=== PATIENT | male | born 1955 | race Caucasian/White ===

== ENCOUNTER 2018-11-04 22:12 | Emergency (ER) | payer BC, OTHER ==
--- NOTE | 2018-11-04 22:37 | EDM.PDOC ---
ED HPI GENERAL MEDICAL PROBLEM - General Chief Complaint: General Stated Complaint: LEG CRAMPS Time Seen by Provider: 11/04/18 22:15 Source of Information: Reports: Patient History Limitations: Reports: No Limitations - History of Present Illness INITIAL COMMENTS - FREE TEXT/NARRATIVE: This is a 63-year-old male. Today he was at a golfing tournament. States he walked 27,000 steps. He noted this evening that he got a cramp in his right thigh which sounds like the adductor muscle. Once that, eased up he got bilateral cramps in his hamstrings. As it turns out he has to bend a lot to do golfing and when you swelling the twisting of the pelvis and the legs affects the adductor muscle on the right leg when you're right-handed. He states he's been not drinking a lot of fluids though he had some Gatorade and some coffee. He denies any other acute symptoms and is never really had some cramps like this before. I believe the cramps are because he is overdone it today and he is a little dry. Right Leg Pain Score (Numeric/FACES): 1 - Related Data Allergies Allergy/AdvReac Type Severity Reaction Status Date / Time No Known Allergies Allergy Verified 11/04/18 22:43 Home Meds: Home Meds . [No Known Home Meds] 11/04/18 [History] Past Medical History - Past Health History Medical/Surgical History: Denies Medical/Surgical History Social & Family History - Tobacco Use Smoking Status *Q: Never Smoker - Recreational Drug Use Recreational Drug Use: No ED ROS GENERAL - Review of Systems Review Of Systems: See Below Constitutional: Denies: Fever, Chills HEENT: Reports: No Symptoms Respiratory: Reports: No Symptoms Cardiovascular: Reports: No Symptoms Endocrine: Reports: No Symptoms GI/Abdominal: Reports: No Symptoms : Reports: No Symptoms Musculoskeletal: Reports: Other (Leg cramps) Skin: Reports: No Symptoms Neurological: Reports: No Symptoms Psychiatric: Reports: No Symptoms Hematologic/Lymphatic: Reports: No Symptoms ED EXAM, GENERAL - Physical Exam Exam: See Below Exam Limited By: No Limitations General Appearance: Alert, WD/WN, No Apparent Distress Eye Exam: Bilateral Eye: Normal Inspection Ears: Normal External Exam Nose: Normal Inspection Throat/Mouth: Normal Inspection, Normal Lips, Normal Voice, No Airway Compromise Head: Normocephalic Neck: Supple Respiratory/Chest: No Respiratory Distress Back Exam: Normal Inspection, Full Range of Motion Extremities: Normal Inspection, Normal Range of Motion, Other (No active cramping presently) Neurological: Alert, Oriented Psychiatric: Normal Affect, Normal Mood Skin Exam: Warm, Dry Course - Vital Signs Last Recorded V/S: Last Vital Signs Temp 97.8 F 11/04/18 22:17 Pulse 80 11/04/18 22:17 Resp 16 11/04/18 22:17 BP 146/88 H 11/04/18 22:17 Pulse Ox 97 11/04/18 22:17 - Orders/Labs/Meds Orders: Active Orders 24 hr Category Date Time Status Sodium Chloride 0.9% [Normal Saline] 1,000 ml Med 11/04/18 22:45 Active IV ASDIRECTED Medication Orders Sodium Chloride (Normal Saline) 1,000 mls @ 1,000 mls/hr IV ASDIRECTED CHANTE Last Admin: 11/04/18 22:48 Dose: 1,000 mls/hr Labs: Laboratory Tests 11/04/18 Range/Units 22:45 Sodium 140 (136-145) mEq/L Potassium 3.7 (3.5-5.1) mEq/L Chloride 108 H (98-107) mEq/L Carbon Dioxide 28 (21-32) mEq/L Anion Gap 7.7 (5-15) BUN 21 H (7-18) mg/dL Creatinine 1.1 (0.7-1.3) mg/dL Est Cr Clr Drug Dosing 79.70 mL/min Estimated GFR (MDRD) > 60 (>60) mL/min BUN/Creatinine Ratio 19.1 H (14-18) Glucose 116 H (80-115) mg/dL Calcium 8.8 (8.5-10.1) mg/dL Magnesium 2.0 (1.8-2.4) mg/dl Total Bilirubin 0.2 (0.2-1.0) mg/dL AST 17 (15-37) U/L ALT 26 (16-63) U/L Alkaline Phosphatase 81 (46-116) U/L Total Protein 6.6 (6.4-8.2) g/dl Albumin 3.3 L (3.4-5.0) g/dl Globulin 3.3 gm/dL Albumin/Globulin Ratio 1.0 (1-2) Meds: Medications Generic Name Dose Route Start Last Admin Trade Name Charley PRN Reason Stop Dose Admin Sodium Chloride 1,000 mls @ 1,000 mls/hr 11/04/18 22:45 11/04/18 22:48 Normal Saline IV 1,000 mls/hr ASDIRECTED CHANTE Administration - Re-Assessments/Exams Free Text/Narrative Re-Assessment/Exam: 11/04/18 23:39 I spoke to the patient regarding his normal sodium potassium calcium and magnesium. Spoke about needing hydration and gentle stretching and that he is overdone the muscles and they're just irritable. Departure - Departure Time of Disposition: 23:40 Disposition: Home, Self-Care 01 Condition: Good Clinical Impression: Muscle fatigue, Mild dehydration, Muscle cramps - Discharge Information *PRESCRIPTION DRUG MONITORING PROGRAM REVIEWED*: Not Applicable *COPY OF PRESCRIPTION DRUG MONITORING REPORT IN PATIENT JAMES: Not Applicable Instructions: Muscle Cramps and Spasms, [id number], Dehydration in Sports- SportsMed Referrals: Cruz Iglesias MD [Primary Care Provider] - Forms: ED Department Discharge Additional Instructions: Continue to hydrate and take Gatorade, if you do get another spasm stretch the muscle to help relieve the spasm, no excessive activity over the next couple days and allow the muscles to rebuild and regenerate so they're not so irritable , follow-up with your family doctor as needed, return to the ER if needed - My Orders Last 24 Hours: My Active Orders 11/04/18 22:45 Sodium Chloride 0.9% [Normal Saline] 1,000 ml IV ASDIRECTED - Assessment/Plan Last 24 Hours: My Active Orders 11/04/18 22:45 Sodium Chloride 0.9% [Normal Saline] 1,000 ml IV ASDIRECTED
[2018-11-04] MEDS ORDERED: Sodium Chloride 0.9% 1,000 ML IV SCH (22:45)
== END 2018-11-04 23:58 | disposition home or self-care (01) ==
LOC: JD.ED 22:12
DX: R25.2 Cramp and spasm (principal); E86.0 Dehydration
CPT/HCPCS: 36415; 80053; 83735; 96360; 99283; J7040

== ENCOUNTER 2019-07-14 16:23 | Emergency (ER) | payer OTHER ==
--- NOTE | 2019-07-14 18:00 | EDM.PDOC ---
ED HPI GENERAL MEDICAL PROBLEM - General Chief Complaint: Upper Extremity Injury/Pain Stated Complaint: R RING FINGER INJURY Time Seen by Provider: 07/14/19 16:34 Source of Information: Reports: Patient History Limitations: Reports: No Limitations - History of Present Illness INITIAL COMMENTS - FREE TEXT/NARRATIVE: Patient is a 64-year-old male who presents to the emergency department with complaints of pain and swelling to his right ring finger. He states he was sliding some boards in the back of his truck and he jammed the finger up against the box of the truck. He has been unable to extend the distal portion of his finger since the injury. He denies any previous fractures to this extremity. Right Finger-Ring Pain Score (Numeric/FACES): 6 - Related Data Allergies Allergy/AdvReac Type Severity Reaction Status Date / Time No Known Allergies Allergy Verified 07/14/19 16:36 Home Meds: Home Meds . [No Known Home Meds] 11/04/18 [History] Past Medical History - Past Health History Medical/Surgical History: Denies Medical/Surgical History Social & Family History - Tobacco Use Smoking Status *Q: Never Smoker - Recreational Drug Use Recreational Drug Use: No Review of Systems - Review of Systems Review Of Systems: Comprehensive ROS is negative, except as noted in HPI. ED EXAM, GENERAL - Physical Exam Exam: See Below Exam Limited By: No Limitations General Appearance: Alert, WD/WN, No Apparent Distress Respiratory/Chest: No Respiratory Distress, Lungs Clear, Normal Breath Sounds, No Accessory Muscle Use, Chest Non-Tender Cardiovascular: Normal Peripheral Pulses, Regular Rate, Rhythm, No Edema, No Gallop, No JVD, No Murmur, No Rub Extremities: Other (Mild swelling to the distal portion of the right fourth finger. Patient is unable to extend his distal phalanx resulting in a mallet deformity of the finger.) Neurological: Alert, Oriented, CN II-XII Intact, Normal Cognition, Normal Gait, Normal Reflexes, No Motor/Sensory Deficits Psychiatric: Normal Affect, Normal Mood Skin Exam: Warm, Dry, Intact, Normal Color, No Rash Course - Vital Signs Last Recorded V/S: Last Vital Signs Temp 97.8 F 07/14/19 16:34 Pulse 78 07/14/19 16:34 Resp 16 07/14/19 16:34 BP 138/86 07/14/19 16:34 Pulse Ox 97 07/14/19 16:34 - Orders/Labs/Meds Orders: Active Orders 24 hr Category Date Time Status Fingers Fourth Digit Rt F8 [CR] Stat Exams 07/14/19 16:41 Taken DME for Discharge [COMM] Routine Oth 07/14/19 18:09 Ordered - Re-Assessments/Exams Free Text/Narrative Re-Assessment/Exam: 07/14/19 18:02 X-rays were negative for any acute fractures, however on the lateral view of the fourth finger, there is a bone fragment to the dorsal aspect of the DIP joint suggesting that he likely avulsed his extensor tendon. A fingertip splint has been applied to keep the finger in extension. Recommend the patient call [facility] Tuesday to set up an appointment with a hand specialist. X-ray images have been pushed to [facility]. Discharge instructions as documented. Departure - Departure Time of Disposition: 18:03 Disposition: Home, Self-Care 01 Condition: Good Clinical Impression: Mallet deformity of right ring finger - Discharge Information *PRESCRIPTION DRUG MONITORING PROGRAM REVIEWED*: No *COPY OF PRESCRIPTION DRUG MONITORING REPORT IN PATIENT JAMES: No Instructions: Mallet Finger Referrals: Cruz Iglesias MD [Primary Care Provider] - Chris Holt MD [Ordering Only Provider] - Forms: ED Department Discharge Additional Instructions: You were seen in the emergency department for pain and swelling to your right ring finger after jamming it against a truck box. X-rays were completed and showed no obvious fractures, however do suggest that she likely avulsed your extensor tendon which is why you are unable to straighten the end of the finger. A splint has been applied. Leave this intact. You may use Tylenol or ibuprofen as needed for pain. You may ice over the finger intermittently over the next couple days. Recommend that first thing Tuesday you call [facility] in [place] to set up an appointment with a hand specialist. The number to schedule as listed below. You may notify them that the x-ray images have been sent to them as well. If you experience any new or worsening symptoms of concern, please not hesitate to return to the emergency department. Sepsis Event Note - Evaluation Sepsis Screening Result: No Definite Risk - Focused Exam Vital Signs: Vital Signs Temp Pulse Resp BP Pulse Ox 07/14/19 16:34 97.8 F 78 16 138/86 97 Date Exam was Performed: 07/14/19 Time Exam was Performed: 21:49 - My Orders Last 24 Hours: My Active Orders 07/14/19 16:41 Fingers Fourth Digit Rt F8 [CR] Stat 07/14/19 18:09 DME for Discharge [COMM] Routine - Assessment/Plan Last 24 Hours: My Active Orders 07/14/19 16:41 Fingers Fourth Digit Rt F8 [CR] Stat 07/14/19 18:09 DME for Discharge [COMM] Routine
--- NOTE | 2019-07-15 06:54 | CR ---
Right 4th finger: 3 views of the right 4th finger were obtained. Soft tissue swelling is noted around the PIP joint. Lucency is noted within the PIP joint. Uncertain if this lucency is due to change from erosive arthritis or could represent an area of osteomyelitis. Smaller lucencies are noted within the distal middle phalanx with similar differential. Slight osteophytes are noted off the DIP joint. Small calcifications believed to represent bony debris noted around the DIP and PIP joints. Impression: 1. Lucencies within the proximal and distal middle phalanx within the 4th digit. Differential includes change from erosive osteoarthritis, osteomyelitis is also within the differential if patient has infectious symptoms. 2. Small calcifications off the PIP and DIP joints believed to be due to bony debris from old injury. 3. Soft tissue swelling. No acute fracture is seen. Diagnostic code #3 This report was dictated in MDT
== END 2019-07-14 18:20 | disposition home or self-care (01) ==
LOC: JD.ED 16:23
DX: M20.011 Mallet finger of right finger(s) (principal)
CPT/HCPCS: 29130; 73140-26-F8; 73140-F8; 99282; 99283-25